=== PATIENT | male | born 1935 | race Caucasian/White ===

== ENCOUNTER 2020-12-19 15:58 | Outpatient (CLI) | payer MEDICARE, OTHER, SELFPAY ==
--- NOTE | 2020-12-19 16:02 | XR_ITS ---
WS: [id number] XR chest 2V* [id number] REASON FOR EXAM: Shortness of breath FINDINGS: No significant interval change compared to the previous examination of 11/06/2015. Mild/moderate tortuosity thoracic aorta. Normal heart size Calcified granulomatous disease in both hemithoraces. Upper lobe peripheral bullous disease. No active pulmonary parenchymal or pleural disease. Mild degenerative changes in the mid and lower thoracic spine. XR/XR chest 2V* [id number] IMPRESSION: No acute chest abnormality.
== END 2020-12-19 15:59 | disposition home or self-care (01) ==
PROVIDERS: PCP Physician Assistant Medical; Visit Provider Internal Medicine Critical Care Medicine
DX: R06.02 Shortness of breath (principal)
CPT/HCPCS: 71046

== ENCOUNTER → 2021-01-24 08:32 | Outpatient (BNVA) | payer MEDICARE, OTHER, SELFPAY | PROVIDERS: PCP Physician Assistant Medical; Visit Provider Internal Medicine Critical Care Medicine | DX: Z01.812 Encounter for preprocedural laboratory examination (principal); Z20.822 Contact with and (suspected) exposure to COVID-19 | CPT/HCPCS: 87635 ==

== ENCOUNTER 2021-01-29 10:16 | Outpatient (CLI) | payer MEDICARE, OTHER, SELFPAY ==
--- NOTE | 2021-01-29 14:32 | PFTS_ITS ---
Date of Study:01/29/21 Date of Dictation: 01/30/2021 MECHANICS: Prebronchodilator forced vital capacity (FVC) is normal. Prebronchodilator forced expiratory volume in one second (FEV1) is moderately reduced at 61 %. FEV1/FVC is reduced. There is no postbronchodilator study. FLOW VOLUME LOOP: Also noted that cough artifact ; sloping of expiratory limb suggestive of airflow obstruction . LUNG VOLUMES: Total lung capacity (TLC) is normal. Residual volume (RV) is increased suggestive of air trapping. DIFFUSING CAPACITY FOR CARBON MONOXIDE: Moderately reduced 47% . INTERPRETATION: The pulmonary function tests are consistent with moderate airflow obstruction. Lung volumes reflect air trapping and there is moderate gas transfer defect. Overall findings suggestive of obstructive ventilatory disease with possible underlying emphysema. Clinical correlation strongly recommended. MTDD
== END 2021-01-29 10:17 | disposition home or self-care (01) ==
LOC: RT 10:17
PROVIDERS: PCP Physician Assistant Medical; Visit Provider Internal Medicine Critical Care Medicine
DX: J44.9 Chronic obstructive pulmonary disease, unspecified (principal)
CPT/HCPCS: 94010; 94618; 94726; 94729

== ENCOUNTER → 2021-04-03 14:55 | Outpatient (BNVA) | payer MEDICARE, SELFPAY | PROVIDERS: PCP Registered Nurse; Visit Provider Internal Medicine Cardiovascular Disease | DX: I48.91 Unspecified atrial fibrillation (principal) | CPT/HCPCS: 87635 ==

== ENCOUNTER → 2021-06-06 13:55 | Outpatient (BNVA) | payer MEDICARE, SELFPAY | PROVIDERS: PCP Registered Nurse; Visit Provider Internal Medicine Cardiovascular Disease | DX: I48.91 Unspecified atrial fibrillation (principal); I35.0 Nonrheumatic aortic (valve) stenosis; I50.33 Acute on chronic diastolic (congestive) heart failure; R06.02 Shortness of breath | CPT/HCPCS: 36415; 83880; 85025; 85610; 99214 ==

== ENCOUNTER → 2021-06-27 14:45 | Outpatient (BNVA) | payer MEDICARE, SELFPAY | PROVIDERS: PCP Registered Nurse; Visit Provider Surgery | DX: R13.10 Dysphagia, unspecified (principal) | CPT/HCPCS: 99203 ==

== ENCOUNTER 2021-07-19 10:25 | Outpatient (CLI) | payer MEDICARE, SELFPAY ==
--- NOTE | 2021-07-19 11:30 | FL_ITS ---
WS: [id number] FL barium swallow modifd [id number] REASON FOR EXAM: Difficulty swallowing FLUOROSCOPY TIME: 2.2 # OF SPOT FILMS: 1 FINDINGS: The examination was supervised by the physical therapy department. The swallowing of barium of varying consistencies was monitored fluoroscopically and video recorded w ith the patient in the sitting upright position. Fluoroscopically the patient was seen to aspirate small amounts during the swallowing of thin barium. Detailed analysis and report will be rendered by the speech therapy department. FL/FL barium swallow modifd [id number] IMPRESSION: Modified barium swallow examination as above.
== END 2021-07-19 10:26 | disposition home or self-care (01) ==
PROVIDERS: PCP Registered Nurse; Visit Provider Surgery
DX: R13.13 Dysphagia, pharyngeal phase (principal)
CPT/HCPCS: 74230; 92611

== ENCOUNTER 2021-07-31 06:00 | Outpatient (RCR) | payer MEDICARE, SELFPAY | END 2021-08-07 23:59 | disposition home or self-care (01) | LOC: SST 06:00 | PROVIDERS: PCP Registered Nurse; Referring Provider Registered Nurse; Visit Provider Registered Nurse | DX: R13.10 Dysphagia, unspecified (principal) | CPT/HCPCS: 92610 ==

== ENCOUNTER → 2021-08-09 09:59 | Outpatient (BNVA) | payer MEDICARE, SELFPAY | PROVIDERS: PCP Registered Nurse; Visit Provider Internal Medicine Cardiovascular Disease | DX: I48.91 Unspecified atrial fibrillation (principal); I49.3 Ventricular premature depolarization; I35.0 Nonrheumatic aortic (valve) stenosis; I51.89 Other ill-defined heart diseases | CPT/HCPCS: 93270; 99214; 99215 ==

== ENCOUNTER 2021-08-10 12:39 | Outpatient (CLI) | payer MEDICARE, SELFPAY ==
--- NOTE | 2021-08-10 12:45 | USCV_ITS ---
Pablo Loya Age: 85 Gender: M : 1935 Exam Date: 08/10/2021 12:49 Ordering Phys: Judy Jaquez MD ([email or web address]) Technologist: Agatha Padilla [place] [facility] [place]: [place]B BP: 120 / 85 HR: 88 Rhythm: Atrial fibrillation Technical Quality: Adequate MEASUREMENTS (Male / Female) Normal Values 2D ECHO LV Diastolic Diameter PLAX 2.9 cm 4.2 - 5.9 / 3.9 - 5.3 cm LV Systolic Diameter PLAX 2.3 cm LV Chamber Size 3.1 cm IVS Diastolic Thickness 1.0 cm 0.6 - 1.0 / 0.6 - 0.9 cm IVS Systolic Thickness 1.4 cm LVPW Diastolic Thickness 0.9 cm 0.6 - 1.0 / 0.6 - 0.9 cm LVPW Systolic Thickness 1.6 cm RV Chamber Size 2.6 cm LVOT Diameter 2.0 cm LV Ejection Fraction 2D Teich 44.3 % LV Ejection Fraction MOD 2C 56.5 % LV Ejection Fraction 2C AL 60.9 % LA Diameter 4.3 cm LA Width 2.9 cm LA Height 3.2 cm RA Width 3.4 cm RA Height 5.3 cm Aorta at Sinotubular Diameter 2.9 cm IVC Diameter 2.2 cm M-MODE Aortic Annulus Diameter 2.8 cm LA Ao Ratio MM 1.8 MV E Point Septal Separation 0.8 cm DOPPLER AV Peak Velocity 295.0 cm/s LVOT Peak Velocity 92.7 cm/s AV Area Cont Eq vti 1.1 cm squared AV Area Cont Eq pk 1.0 cm squared MV Area PHT 3.6 cm squared MV E' Velocity 61.0 cm/s Mitral E to MV E' Ratio 11.3 Mitral E to LV E' Lateral Ratio 11.0 Mitral E to LV E' Septal Ratio 11.7 TR Peak Velocity 341.0 cm/s TR Peak Gradient 46.5 mmHg TR Mean Velocity 206.4 cm/s TR Mean Gradient 20.6 mmHg TR Velocity Time Integral 73.8 cm TV Peak E Velocity 48.0 cm/s Right Atrial Pressure 15.0 mmHg Pulmonary Artery Systolic Pressu 61.5 mmHg PV Peak Velocity 86.0 cm/s RV Acceleration Time 0.1 s RV Ejection Time 0.3 s RV AcT/ET 0.5 FINDINGS Left Ventricle Normal left ventricular size and systolic function, EF 60%.no regional wall motion abnormalities. Right Ventricle The right ventricle is normal in size and function. Right Atrium Mildly increased right atrial size. Left Atrium Mildly increased left atrial size. Mitral Valve Moderate mitral annular calcification. Aortic Valve Moderate aortic valve stenosis, mean gradient 13.8 mmHg, RANI 1.1 cm squared. Peak velocity of 3.03 m/s with a peak gradient of 37 and a mean gradient of 14 mmHg. [id number] aortic valve regurgitation. Tricuspid Valve Erbf-od-cwzhtndo tricuspid valve regurgitation. Moderate pulmonary hypertension with an estimated pulmonary artery peak systolic pressure of 62 mmHg Pulmonic Valve No gross abnormalities noted Pericardium No pericardial effusion. Aorta Normal aortic annulus size. IVC Dilated and noncollapsible IVC. Estimated arterial pressure 15 mmHg CONCLUSIONS Normal left ventricular size and systolic function, EF 60%.no regional wall motion abnormalities. Moderate aortic valve stenosis, mean gradient 13.8 mmHg, RANI 1.1 cm squared. Peak velocity of 3.03 m/s with a peak gradient of 37 and a mean gradient of 14 mmHg. Fufh-dz-fsdqhreu aortic valve regurgitation. Mild biatrial enlargement. Moderate mitral annular calcification. Qbam-vl-sckeoxzx tricuspid valve regurgitation. Moderate pulmonary hypertension with an estimated pulmonary artery peak systolic pressure of 62 mmHg. There is no pericardial effusion. No similar previous studies are available for comparison Dr Judy Jaquez MD [facility] (Electronically Signed) Final Date: 11 August 2021 11:35 S
== END 2021-08-10 12:40 | disposition home or self-care (01) ==
LOC: RAD 12:41
PROVIDERS: PCP Registered Nurse; Visit Provider Internal Medicine Cardiovascular Disease
DX: I48.91 Unspecified atrial fibrillation (principal); R06.00 Dyspnea, unspecified; I08.2 Rheumatic disorders of both aortic and tricuspid valves; I27.20 Pulmonary hypertension, unspecified
CPT/HCPCS: 36415; 83880; 85025; 85610; 93306; 99214

== ENCOUNTER 2021-08-27 13:27 | Outpatient (CLI) | payer MEDICARE, SELFPAY ==
--- NOTE | 2021-08-27 13:45 | USCV_ITS ---
Pablo Loya Age: 85 Gender: M : 1935 Exam Date: 08/27/2021 13:49 Ordering Phys: Judy Jaquez MD ([email or web address]) Technologist: Agatha Padilla Exam Location: [facility] [place] Indication: Leg Swelling HISTORY: Leg Swelling PROCEDURES: The venous duplex Doppler examination of both lower extremities was performed in the standard fashion. The following venous structures were evaluated: common femoral vein, profunda vein, proximal portion of the greater saphenous vein, superficial femoral vein, and the popliteal vein. In addition, the posterior tibial and peroneal trunk were evaluated. Serial compression, augmentation maneuvers, and spectral Doppler flow evaluation were performed. FINDINGS: Normal 2-D Doppler and augmentation and compressibility throughout the lower extremity venous structures. Additional imaging through the proximal calf veins also reveals no thrombus. Limited evaluation of the greater saphenous vein is patent with no thrombus.. The veins were found to be easily compressible with spontaneous blood flow. Non pulsatile flow pattern. CONCLUSIONS No evidence of DVT in the above-mentioned identifiable veins. No evidence of any superficial vein thrombosis in the examined veins as mentioned above Dr Judy Jaquez MD [facility] (Electronically Signed) Final Date: 30 August 2021 07:23 S
== END 2021-08-27 13:28 | disposition home or self-care (01) ==
PROVIDERS: PCP Registered Nurse; Visit Provider Internal Medicine Cardiovascular Disease
DX: M79.89 Other specified soft tissue disorders (principal)
CPT/HCPCS: 93970

== ENCOUNTER → 2021-09-03 14:24 | Outpatient (BNVA) | payer MEDICARE, SELFPAY | PROVIDERS: PCP Registered Nurse; Visit Provider Internal Medicine Cardiovascular Disease | DX: R07.89 Other chest pain (principal); I48.91 Unspecified atrial fibrillation; I35.0 Nonrheumatic aortic (valve) stenosis; J96.11 Chronic respiratory failure with hypoxia; Z86.73 Personal history of transient ischemic attack (TIA), and cerebral infarction without residual deficits; Z87.891 Personal history of nicotine dependence; I50.33 Acute on chronic diastolic (congestive) heart failure; I51.89 Other ill-defined heart diseases | CPT/HCPCS: 80048; 83880; 93005; 99214 ==

== ENCOUNTER 2021-09-13 09:07 | Outpatient (CLI) | payer MEDICARE, SELFPAY ==
[2021-09-13 10:18] LABS: Anion Gap 16.9 (5-19); Blood Urea Nitrogen 20 mg/dL (8-23); Calcium 9.4 mg/dL (8.5-10.5); Carbon Dioxide 25 mmol/L (22-29); Chloride 103 mmol/L (98-107); Glucose 107 mg/dL (65-115); NT Pro B Type Natriuretic Pept 312 pg/mL (0-450); Osmolality Calculated 293 mOsm/kg (285-295); Potassium 4.9 mmol/L (3.5-5.1); Sodium 140 mmol/L (136-145)
== END 2021-09-13 09:08 | disposition home or self-care (01) ==
PROVIDERS: PCP Registered Nurse; Visit Provider Internal Medicine Cardiovascular Disease
DX: I48.91 Unspecified atrial fibrillation (principal); I51.89 Other ill-defined heart diseases; M79.89 Other specified soft tissue disorders; R07.9 Chest pain, unspecified; I35.0 Nonrheumatic aortic (valve) stenosis
CPT/HCPCS: 80048; 83880

== ENCOUNTER → 2021-12-10 09:43 | Outpatient (BNVA) | payer MEDICARE, SELFPAY | PROVIDERS: PCP Registered Nurse; Visit Provider Internal Medicine Critical Care Medicine | DX: J44.9 Chronic obstructive pulmonary disease, unspecified (principal); J96.11 Chronic respiratory failure with hypoxia; I35.0 Nonrheumatic aortic (valve) stenosis; I48.91 Unspecified atrial fibrillation; M17.10 Unilateral primary osteoarthritis, unspecified knee; I51.7 Cardiomegaly; I27.20 Pulmonary hypertension, unspecified; Z87.891 Personal history of nicotine dependence; R13.10 Dysphagia, unspecified | CPT/HCPCS: 99214 ==

== ENCOUNTER → 2021-12-17 15:35 | Outpatient (BNVA) | payer MEDICARE, SELFPAY | PROVIDERS: PCP Registered Nurse; Visit Provider Internal Medicine Cardiovascular Disease | DX: I48.91 Unspecified atrial fibrillation (principal); I11.9 Hypertensive heart disease without heart failure; Z87.891 Personal history of nicotine dependence; I35.0 Nonrheumatic aortic (valve) stenosis; J44.9 Chronic obstructive pulmonary disease, unspecified; Z86.73 Personal history of transient ischemic attack (TIA), and cerebral infarction without residual deficits; R94.31 Abnormal electrocardiogram [ECG] [EKG] | CPT/HCPCS: 93005; 99214 ==

== ENCOUNTER → 2022-02-26 09:27 | Outpatient (BNVA) | payer MEDICARE, SELFPAY | PROVIDERS: PCP Registered Nurse; Visit Provider Surgery | DX: R13.10 Dysphagia, unspecified (principal) | CPT/HCPCS: 99203 ==